=== PATIENT | female | born 1935 | race Caucasian/White ===

== ENCOUNTER → 2017-12-14 12:03 | Outpatient (CLI) | payer MEDICARE, SELFPAY ==
[2017-12-14 13:13] LABS: Prothrombin Time (Protime)PT. 22.7 SECONDS (11.7-14.9)
== END ==
PROVIDERS: Family Provider Internal Medicine; PCP Internal Medicine; Visit Provider Internal Medicine
DX: I48.91 Unspecified atrial fibrillation (principal)
CPT/HCPCS: 85610

== ENCOUNTER → 2018-01-25 12:15 | Outpatient (CLI) | payer MEDICARE, SELFPAY ==
[2018-01-25 12:26] LABS: Prothrombin Time (Protime)PT. 22.8 SECONDS (11.7-14.9)
== END ==
PROVIDERS: Family Provider Internal Medicine; PCP Internal Medicine; Referring Provider Internal Medicine; Visit Provider Internal Medicine
DX: I48.91 Unspecified atrial fibrillation (principal)
CPT/HCPCS: 85610

== ENCOUNTER → 2018-04-22 12:56 | Outpatient (CLI) | payer MEDICARE, SELFPAY ==
[2018-04-22 13:14] LABS: International Normalized Ratio 2.1; Prothrombin Time (Protime)PT. 23.7 SECONDS (11.7-14.9)
== END ==
PROVIDERS: Family Provider Internal Medicine; PCP Internal Medicine; Referring Provider Internal Medicine; Visit Provider Internal Medicine
DX: I48.91 Unspecified atrial fibrillation (principal)
CPT/HCPCS: 85610

== ENCOUNTER → 2018-05-13 11:42 | Outpatient (CLI) | payer MEDICARE, SELFPAY ==
[2013-09-27 15:52] VITALS: BMI 34.9
[2018-05-13 12:03] LABS: International Normalized Ratio 1.9; Prothrombin Time (Protime)PT. 21.7 SECONDS (11.7-14.9)
== END ==
PROVIDERS: Family Provider Internal Medicine; PCP Internal Medicine; Referring Provider Internal Medicine; Visit Provider Internal Medicine
DX: I48.91 Unspecified atrial fibrillation (principal)
CPT/HCPCS: 85610

== ENCOUNTER → 2018-06-02 11:56 | Outpatient (CLI) | payer MEDICARE, SELFPAY ==
[2013-09-27 15:52] VITALS: BMI 34.9
[2018-06-02 12:22] LABS: International Normalized Ratio 1.7; Prothrombin Time (Protime)PT. 19.5 SECONDS (11.7-14.9)
== END ==
PROVIDERS: Family Provider Internal Medicine; PCP Internal Medicine; Referring Provider Internal Medicine; Visit Provider Internal Medicine
DX: I48.91 Unspecified atrial fibrillation (principal)
CPT/HCPCS: 85610

== ENCOUNTER → 2018-06-16 12:08 | Outpatient (CLI) | payer MEDICARE, SELFPAY ==
[2018-06-16 12:28] LABS: International Normalized Ratio 1.8; Prothrombin Time (Protime)PT. 20.9 SECONDS (11.7-14.9)
== END ==
PROVIDERS: Family Provider Internal Medicine; PCP Internal Medicine; Referring Provider Internal Medicine; Visit Provider Internal Medicine
DX: I48.91 Unspecified atrial fibrillation (principal)
CPT/HCPCS: 85610

== ENCOUNTER → 2018-07-28 | Outpatient (CLI) | payer MEDICARE, SELFPAY ==
[2013-09-27 15:52] VITALS: BMI 34.9
[2018-07-28 10:46] LABS: International Normalized Ratio 1.9; Prothrombin Time (Protime)PT. 21.4 SECONDS (11.7-14.9)
== END | disposition home or self-care (01) ==
PROVIDERS: Family Provider Internal Medicine; PCP Internal Medicine; Referring Provider Internal Medicine; Visit Provider Internal Medicine
DX: I48.91 Unspecified atrial fibrillation (principal)
CPT/HCPCS: 85610

== ENCOUNTER → 2018-10-07 | Outpatient (CLI) | payer MEDICARE, SELFPAY ==
[2013-09-27 15:52] VITALS: BMI 34.9
[2018-10-07 10:47] LABS: International Normalized Ratio 2.9; Prothrombin Time (Protime)PT. 30.6 SECONDS (11.7-14.9)
== END | disposition home or self-care (01) ==
LOC: LABSPEC 10:24
PROVIDERS: Family Provider Internal Medicine; PCP Internal Medicine; Referring Provider Internal Medicine; Visit Provider Internal Medicine
DX: I48.2 Chronic atrial fibrillation (principal)
CPT/HCPCS: 85610

== ENCOUNTER → 2018-12-20 | Outpatient (CLI) | payer MEDICARE, SELFPAY ==
[2013-09-27 15:52] VITALS: BMI 34.9
[2018-12-20 12:35] LABS: International Normalized Ratio 3.2; Prothrombin Time (Protime)PT. 33.3 SECONDS (11.7-14.9)
== END | disposition home or self-care (01) ==
LOC: LAB 12:14
PROVIDERS: Family Provider Internal Medicine; PCP Internal Medicine; Referring Provider Internal Medicine; Visit Provider Internal Medicine
DX: I48.2 Chronic atrial fibrillation (principal)
CPT/HCPCS: 85610

== ENCOUNTER 2025-03-08 12:31 | Inpatient (IN) | payer MEDICARE, SELFPAY ==
[2025-03-08] VITALS (26 sets, daily range): BP systolic 105–131; BP diastolic 46–82; PULSE 79–90; RESP 15–32; TEMP 36.6–37.2; O2SAT 84–100; BMI 29.8; BMI 29.0
--- NOTE | 2025-03-08 12:43 | EKG12_ITS ---
Test Reason : SOB Blood Pressure : */* mmHG Vent. Rate : 81 BPM Atrial Rate : 81 BPM P-R Int : 126 ms QRS Dur : 132 ms QT Int : 436 ms P-R-T Axes : * 256 84 degrees QTcB Int : 506 ms AV dual-paced rhythm Abnormal ECG Confirmed by KIN GUERRERO, RAJESH ([id number]), editor newspaper KIANNA RENTERIA ([id number]) on 03/12/2025 6:27:12 AM Referred By: SAMINA/BRENDA Confirmed By: RAJESH SANDERSON MD
[2025-03-08 13:09] LABS: Hematocrit 31.3 % (37-47); Hemoglobin 10.1 g/dL (12.0-15.0); Immature Granulocytes Count 0.180 X10^3/uL (0.0-0.0); Mean Corp Hgb Conc 32.3 g/dL (32-36); Mean Corpuscular Volume 105.4 fL (81-99); Mean Platelet Vol. 11.8 fl (6.2-12.0); NRBC Flagged by Analyzer 0 % (0-5); POSITIVE MORPHOLOGY YES; Platelet Count 164 K/mm3 (150-450); RBC Distribution Width CV 20.2 % (11.6-14.6); RBC Distribution Width SD 77.2 fl (35.1-43.9); Red Blood Count 2.97 M/mm3 (4.2-5.4); White Blood Count 15.0 K/mm3 (4.4-11.0)
--- NOTE | 2025-03-08 13:30 | RAD_ITS ---
PROCEDURE: CHEST 1 VIEW (PORTABLE) 03/08/2025 REASON FOR EXAM: COUGH TECHNIQUE: Frontal view of the chest. COMPARISON: None FINDINGS: Hardware: Biventricular pacemaker is in place. Heart: The heart is enlarged status post median sternotomy Lungs: Central congestion. Trace pleural fluid. Bones: Degenerative changes are identified within the thoracic spine. RAD/Chest 1 View (Portable) IMPRESSION: Cardiac enlargement. Central congestion. Reading Location: [id number]
[2025-03-08 13:36] LABS: Differential Indicated SCAN CRITERIA MET
[2025-03-08 13:37] LABS: Anisocytosis 2+; Differential Comment SCANNED; Macrocytosis 1+; Polychromasia RARE
[2025-03-08 13:47] LABS: Prothrombin Time (Protime)PT. 21.6 SECONDS (11.7-14.9)
[2025-03-08 13:48] LABS: Partial Thromboplast Time 32.2 Seconds (24.1-36.2)
[2025-03-08 14:11] LABS: Anion Gap 12 (5-15); BUN 12 mg/dL (4-19); BUN/Creat Ratio 16.6 RATIO (10-20); Calcium,Total 9.5 mg/dL (7.6-11.0); Carbon Dioxide 28.9 mmol/L (21.0-32.0); Chloride 101 mmol/L (98-108); Estimated Creatinine Clearance 50.32 ml/min (50-250); Glucose 114 mg/dL (70-99); Potassium 3.7 mmol/L (3.3-5.1); Troponin T High Sensitivity 10 ng/L (<=14)
[2025-03-08 14:28] LABS: AST(SGOT) 20 U/L (<=31); Alanine Aminotransfer ALT/SGPT 14 U/L (<=34); Albumin, Serum 4.4 g/dL (3.4-4.8); Alkaline Phosphatase 75 U/L (35-104); Anion Gap 14 (5-15); BUN 12 mg/dL (4-19); BUN/Creat Ratio 16.6 RATIO (10-20); Calcium,Total 9.4 mg/dL (7.6-11.0); Carbon Dioxide 27.4 mmol/L (21.0-32.0); Chloride 101 mmol/L (98-108); Estimated Creatinine Clearance 50.32 ml/min (50-250); Globulin 3.0 g/dL (2.2-4.2); Glucose 114 mg/dL (70-99); Potassium 3.7 mmol/L (3.3-5.1); Pro- Brain NATRIURETIC PEPTIDE 443 pg/mL (<=1800)
[2025-03-08 14:53] LABS: Mucous, Urine 0 SEEN /hpf (<or=2+); Red Blood Cells-Urine 0 SEEN /hpf (0-5); Squamous Epithelial Cells - UA 0 SEEN /hpf (5-10)
[2025-03-08 15:00] LABS: Color, Urine Yellow (Yellow); Glucose, Dipstick Normal (Normal); Ketone-Dipstick Negative (Negative); Leukocyte Esterase-Dipstick 25 /ul (Negative); Nitrite-Dipstick Negative (Negative); Occult Blood-Urine Negative /ul (Negative); Protein-Dipstick 30 mg/dl (Negative); Specific Gravity, Urine 1.010 (1.002-1.030); Urine Bilirubin Dipstick Negative (Negative)
[2025-03-08 15:23] LABS: Troponin T High Sens 2 HR 29 ng/L (<=14)
--- NOTE | 2025-03-08 15:25 | EX.ED.DYSGE1 ---
HPI History of Present Illness Chief Complaint: Shortness of Breath Informant: patient and family Narrative Narrative: 89-year-old female presenting to the emergency room with hypoxia and fever. Patient states for the past week week and a half she has had a cold. She notes a cough some nasal congestion. Beginning on Wednesday she has had a more difficult time with her breathing noting sputum production. She went to see hematology today due to anemia was noted to be febrile at 1-1.7 as well as hypoxic. Patient has not had any Tylenol or antipyretics yet today. She denies diarrhea or vomiting. She notes some generalized fatigue. She does not wear oxygen at home. She is on the Coumadin for prior valvular replacement and A-fib. Patient notes some mild swelling of her lower extremities but states it is not significantly different than normal but she did notice it this morning. [facility] Medical History Pacemaker Breast cancer Anemia HTN (hypertension) Afib Home Medications ?Medication ?Instructions ?Recorded ?Last Taken ?Type calcium 600 mg (as 1 tab PO BID 09/27/13 09/27/13 08:00 History carbonate)-vitamin D3 10 mcg (400 unit) tablet (Calcium 600 + D(3)) nitroglycerin 0.4 mg sublingual 0.4 mg sublingual Q5M PRN Chest 09/27/13 Unknown History tablet Pain potassium chloride 20 mEq 20 meq PO BID 09/27/13 09/27/13 08:00 History tablet,extended release warfarin 5 mg tablet (Jantoven) 8 mg PO SUMOWEFRSA 09/27/13 09/26/13 19:00 History warfarin 7.5 mg tablet (Jantoven) 10 mg PO TUTH 09/27/13 09/23/13 20:00 History atorvastatin 20 mg tablet 20 mg PO QHS cholesterol 03/08/25 Unknown History bumetanide 1 mg tablet 1 - 2 mg PO DAILY edema 03/08/25 Unknown History metoprolol succinate 50 mg 50 mg PO DAILY 03/08/25 Unknown History tablet,extended release 24 hr sacubitril 24 mg-valsartan 26 mg 0.5 tab PO BID 03/08/25 Unknown History tablet sertraline 50 mg tablet 50 mg PO DAILY 03/08/25 Unknown History Allergy/AdvReac Type Severity Reaction Status Date / Time Quinolones Allergy Unknown Verified 03/08/25 12:34 Surgical History H/O aortic valve replacement H/O mitral valve replacement Social History (Updated 03/08/25 @ 16:[address] Blanche Fallon DO) Smoking Status: Never smoker alcohol intake: never substance use type: does not use ROS ROS ED ROS Narrative Generalized weakness Constitutional Constitutional ED: Reports chills and fever(s); Denies weight loss Eyes Eyes: Denies change in vision or diplopia ENT ENT ED: Denies ear pain, rhinorrhea or sore throat Cardiovascular Cardiovascular: Denies chest pain, orthopnea, palpitations or racing heartbeat Respiratory/Chest Respiratory/Chest: Reports cough and sputum; Denies dyspnea or orthopnea Gastrointestinal Gastrointestinal: Denies abdominal pain, diarrhea, nausea or vomiting Genitourinary Genitourinary ED: Denies dysuria, hematuria or urinary frequency Musculoskeletal Musculoskeletal: Denies arthralgias or myalgias Integumentary Denies abscess or rash Neurologic Neurologic: Denies headache(s) or weakness Psychiatric Psychiatric: Denies anxiety, depression, suicidal ideation or suicidal thoughts Endocrine Endocrinology: Denies polydipsia, polyphagia or polyuria Allergic/Immunologic Allergic/Immunologic ED: Denies mouth swelling, tongue swelling or urticaria EXAM Physical Exam Const Vital Signs: 03/08/25 12:34 03/08/25 12:36 03/08/25 13:03 Temperature 98.6 F Temperature Source Oral Pulse Rate 79 81 Respiratory Rate 20 H 18 Respiratory Effort Respiratory Depth Respiratory Pattern Blood Pressure 127/60 H Blood Pressure Mean 82 Pulse Ox 84 100 Oxygen Delivery Method Room Air Nasal Cannula Nasal Cannula Oxygen Flow Rate (L/min) 2 2 03/08/25 13:03 03/08/25 13:04 03/08/25 13:06 Temperature Temperature Source Pulse Rate 87 Respiratory Rate 25 H 22 H Respiratory Effort Normal Non-Labored Respiratory Depth Normal Respiratory Pattern Normal Blood Pressure Blood Pressure Mean Pulse Ox 95 87 Oxygen Delivery Method Nasal Cannula Nasal Cannula Oxygen Flow Rate (L/min) 2 2 03/08/25 13:14 03/08/25 13:15 03/08/25 13:21 Temperature 99 F Temperature Source Oral Pulse Rate 81 81 Respiratory Rate 20 H 27 H Respiratory Effort Respiratory Depth Respiratory Pattern Blood Pressure 131/82 H 126/62 H Blood Pressure Mean 98 81 Pulse Ox 93 93 Oxygen Delivery Method Nasal Cannula Nasal Cannula Oxygen Flow Rate (L/min) 2 2 03/08/25 13:30 03/08/25 13:45 03/08/25 14:00 Temperature 99 F Temperature Source Oral Pulse Rate 80 Respiratory Rate 15 Respiratory Effort Respiratory Depth Respiratory Pattern Blood Pressure 105/55 L 120/61 119/63 Blood Pressure Mean 68 80 81 Pulse Ox 93 96 Oxygen Delivery Method Nasal Cannula Oxygen Flow Rate (L/min) 2 03/08/25 14:00 03/08/25 14:01 03/08/25 14:15 Temperature Temperature Source Pulse Rate 80 80 Respiratory Rate 26 H 25 H Respiratory Effort Respiratory Depth Respiratory Pattern Blood Pressure 119/63 119/60 Blood Pressure Mean 81 79 Pulse Ox 99 94 Oxygen Delivery Method Oxygen Flow Rate (L/min) 03/08/25 14:30 03/08/25 14:45 03/08/25 14:55 Temperature Temperature Source Pulse Rate 81 82 81 Respiratory Rate 24 H 15 30 H Respiratory Effort Respiratory Depth Respiratory Pattern Blood Pressure 126/59 H 126/56 H 112/59 L Blood Pressure Mean 79 77 76 Pulse Ox 95 94 92 Oxygen Delivery Method Oxygen Flow Rate (L/min) 03/08/25 15:00 03/08/25 15:00 03/08/25 15:00 Temperature 98.2 F Temperature Source Oral Pulse Rate 81 80 90 Respiratory Rate 26 H 20 H 23 H Respiratory Effort Respiratory Depth Respiratory Pattern Blood Pressure 109/54 L 109/54 L 109/54 L Blood Pressure Mean 72 72 72 Pulse Ox 94 94 94 Oxygen Delivery Method Nasal Cannula Nasal Cannula Oxygen Flow Rate (L/min) 2 2 03/08/25 15:15 03/08/25 15:28 03/08/25 15:30 Temperature 98.2 F Temperature Source Pulse Rate 80 80 80 Respiratory Rate 32 H 26 H 29 H Respiratory Effort Respiratory Depth Respiratory Pattern Blood Pressure 112/55 L 112/55 L 119/59 L Blood Pressure Mean 73 74 72 Pulse Ox 100 96 96 Oxygen Delivery Method Oxygen Flow Rate (L/min) 03/08/25 15:45 03/08/25 16:00 Temperature Temperature Source Pulse Rate 81 80 Respiratory Rate 32 H 31 H Respiratory Effort Respiratory Depth Respiratory Pattern Blood Pressure 114/57 L 106/53 L Blood Pressure Mean 74 69 Pulse Ox 93 94 Oxygen Delivery Method Oxygen Flow Rate (L/min) Positive well nourished and well developed General Appearance ED: well developed and NAD HEENT Reports normocephalic, head/scalp atraumatic and moist mucous membranes Eyes PERRL and EOMs intact bilaterally Neck no lymphadenopathy, supple and no JVD Resp normal respiratory effort Resp Narrative: Patient has a moist cough with thick sputum production Auscultation: rhonchi throughout Cardio regular rate, regular rhythm and no murmurs GI normal to inspection, nondistended, normoactive bowel sounds and non-tender Palpation: soft Back/Spine no CVA tenderness and normal ROM Extremity General Extremety ED: Yes edema; Negative for tenderness General Extremity: edema bilateral lower extremity Details: mild Neuro oriented x3, CN's II-XII intact bilaterally and no sensory deficits noted Sensorium / Orientation: alert Motor Exam: strength 5/5 throughout Psych mental status grossly normal Mood & Affect: Negative for depressed or tearful Skin no rashes or lesions noted and no wounds MDM MDM MDM Narrative Medical decision making narrative: Differential diagnosis includes but not limited to acute coronary syndrome pneumonia bronchitis bronchospasm pleural effusion congestive heart failure sepsis Patient's white count is elevated at 15 hemoglobin 10.1 platelet count of 164. INR is 1.8. Glucose is 114 troponin 29 urinalysis no overt infection COVID influenza RSV swabs negative. BNP is 445. May depend interpretation of the chest x-ray is right middle lobe and left lower lobe infiltrates. EKG is a paced rhythm. Patient received a breathing treatment as well as Rocephin and azithromycin. She is requiring 2 L nasal cannula and is about 91%. Plan of care is admission History & Record Review Discussion w/independent historian: Patient and Family Lab Data Attestation: I reviewed the patient's lab results. Labs: Laboratory Results - last 24 hr 03/08/25 03/08/25 03/08/25 13:04 13:04 13:04 WBC 15.0 H RBC 2.97 L Hgb 10.1 L Hct 31.3 L MCV 105.4 H MCH 34.0 H MCHC 32.3 RDW Std Deviation 77.2 H RDW Coeff of Trino 20.2 H Plt Count 164 MPV 11.8 Immature Gran % (Auto) 1.200 H Neut % (Auto) 83.4 H Lymph % (Auto) 6.8 L [place] % (Auto) 8.1 Eos % (Auto) 0.2 Baso % (Auto) 0.3 Absolute Neuts (auto) 12.5 H Absolute Lymphs (auto) 1.02 Nucleated RBC % 0 Differential Comment SCANNED Polychromasia RARE Anisocytosis 2+ Macrocytosis 1+ Ovalocytes RARE Stomatocytes RARE PT INR APTT Sodium 141 142 Potassium 3.7 3.7 Chloride 101 Carbon Dioxide Anion Gap BUN Creatinine Estim Creat Clear Calc Est GFR (MDRD) Non-Af BUN/Creatinine Ratio Glucose Lactic Acid Calcium Total Bilirubin AST ALT Alkaline Phosphatase Troponin T High Sens Troponin T Hi Sens 2 Hr NT pro BNP II Total Protein Albumin Globulin Albumin/Globulin Ratio Urine Color Urine Clarity Urine pH Ur Specific [place] Urine Protein Urine Glucose (UA) Urine Ketones Urine Occult Blood Urine Nitrite Urine Bilirubin Urine Urobilinogen Ur Leukocyte Esterase Urine RBC Urine WBC Ur Squamous Epith Cells Urine Bacteria Urine Mucus 03/08/25 03/08/25 03/08/25 13:04 13:04 13:04 WBC RBC Hgb Hct MCV MCH MCHC RDW Std Deviation RDW Coeff of Trino Plt Count MPV Immature Gran % (Auto) Neut % (Auto) Lymph % (Auto) [place] % (Auto) Eos % (Auto) Baso % (Auto) Absolute Neuts (auto) Absolute Lymphs (auto) Nucleated RBC % Differential Comment Polychromasia Anisocytosis Macrocytosis Ovalocytes Stomatocytes PT INR APTT Sodium Potassium Chloride 101 Carbon Dioxide 28.9 27.4 Anion Gap 12 14 BUN 12 Creatinine Estim Creat Clear Calc Est GFR (MDRD) Non-Af BUN/Creatinine Ratio Glucose Lactic Acid Calcium Total Bilirubin AST ALT Alkaline Phosphatase Troponin T High Sens Troponin T Hi Sens 2 Hr NT pro BNP II Total Protein Albumin Globulin Albumin/Globulin Ratio Urine Color Urine Clarity Urine pH Ur Specific [place] Urine Protein Urine Glucose (UA) Urine Ketones Urine Occult Blood Urine Nitrite Urine Bilirubin Urine Urobilinogen Ur Leukocyte Esterase Urine RBC Urine WBC Ur Squamous Epith Cells Urine Bacteria Urine Mucus 03/08/25 03/08/25 03/08/25 13:04 13:04 13:04 WBC RBC Hgb Hct MCV MCH MCHC RDW Std Deviation RDW Coeff of Trino Plt Count MPV Immature Gran % (Auto) Neut % (Auto) Lymph % (Auto) [place] % (Auto) Eos % (Auto) Baso % (Auto) Absolute Neuts (auto) Absolute Lymphs (auto) Nucleated RBC % Differential Comment Polychromasia Anisocytosis Macrocytosis Ovalocytes Stomatocytes PT INR APTT Sodium Potassium Chloride Carbon Dioxide Anion Gap BUN 12 Creatinine 0.73 0.72 Estim Creat Clear Calc 50.32 50.32 Est GFR (MDRD) Non-Af 79 BUN/Creatinine Ratio Glucose Lactic Acid Calcium Total Bilirubin AST ALT Alkaline Phosphatase Troponin T High Sens Troponin T Hi Sens 2 Hr NT pro BNP II Total Protein Albumin Globulin Albumin/Globulin Ratio Urine Color Urine Clarity Urine pH Ur Specific [place] Urine Protein Urine Glucose (UA) Urine Ketones Urine Occult Blood Urine Nitrite Urine Bilirubin Urine Urobilinogen Ur Leukocyte Esterase Urine RBC Urine WBC Ur Squamous Epith Cells Urine Bacteria Urine Mucus 03/08/25 03/08/25 03/08/25 13:04 13:04 13:04 WBC RBC Hgb Hct MCV MCH MCHC RDW Std Deviation RDW Coeff of Trino Plt Count MPV Immature Gran % (Auto) Neut % (Auto) Lymph % (Auto) [place] % (Auto) Eos % (Auto) Baso % (Auto) Absolute Neuts (auto) Absolute Lymphs (auto) Nucleated RBC % Differential Comment Polychromasia Anisocytosis Macrocytosis Ovalocytes Stomatocytes PT INR APTT Sodium Potassium Chloride Carbon Dioxide Anion Gap BUN Creatinine Estim Creat Clear Calc Est GFR (MDRD) Non-Af 81 BUN/Creatinine Ratio 16.6 16.6 Glucose 114 H 114 H Lactic Acid Calcium 9.5 Total Bilirubin AST ALT Alkaline Phosphatase Troponin T High Sens Troponin T Hi Sens 2 Hr NT pro BNP II Total Protein Albumin Globulin Albumin/Globulin Ratio Urine Color Urine Clarity Urine pH Ur Specific [place] Urine Protein Urine Glucose (UA) Urine Ketones Urine Occult Blood Urine Nitrite Urine Bilirubin Urine Urobilinogen Ur Leukocyte Esterase Urine RBC Urine WBC Ur Squamous Epith Cells Urine Bacteria Urine Mucus 03/08/25 03/08/25 03/08/25 13:04 13:14 13:30 WBC RBC Hgb Hct MCV MCH MCHC RDW Std Deviation RDW Coeff of Trino Plt Count MPV Immature Gran % (Auto) Neut % (Auto) Lymph % (Auto) [place] % (Auto) Eos % (Auto) Baso % (Auto) Absolute Neuts (auto) Absolute Lymphs (auto) Nucleated RBC % Differential Comment Polychromasia Anisocytosis Macrocytosis Ovalocytes Stomatocytes PT 21.6 H INR 1.8 APTT 32.2 Sodium Potassium Chloride Carbon Dioxide Anion Gap BUN Creatinine Estim Creat Clear Calc Est GFR (MDRD) Non-Af BUN/Creatinine Ratio Glucose Lactic Acid 1.3 Calcium 9.4 Total Bilirubin 1.15 AST 20 ALT 14 Alkaline Phosphatase 75 Troponin T High Sens 10 Troponin T Hi Sens 2 Hr NT pro BNP II 443 Total Protein 7.4 Albumin 4.4 Globulin 3.0 Albumin/Globulin Ratio 1.5 Urine Color Urine Clarity Urine pH Ur Specific [place] Urine Protein Urine Glucose (UA) Urine Ketones Urine Occult Blood Urine Nitrite Urine Bilirubin Urine Urobilinogen Ur Leukocyte Esterase Urine RBC Urine WBC Ur Squamous Epith Cells Urine Bacteria Urine Mucus 03/08/25 03/08/25 03/08/25 14:45 14:50 15:35 WBC RBC Hgb Hct MCV MCH MCHC RDW Std Deviation RDW Coeff of Trino Plt Count MPV Immature Gran % (Auto) Neut % (Auto) Lymph % (Auto) [place] % (Auto) Eos % (Auto) Baso % (Auto) Absolute Neuts (auto) Absolute Lymphs (auto) Nucleated RBC % Differential Comment Polychromasia Anisocytosis Macrocytosis Ovalocytes Stomatocytes PT INR APTT Sodium Potassium Chloride Carbon Dioxide Anion Gap BUN Creatinine Estim Creat Clear Calc Est GFR (MDRD) Non-Af BUN/Creatinine Ratio Glucose Lactic Acid Calcium Total Bilirubin AST ALT Alkaline Phosphatase Troponin T High Sens Troponin T Hi Sens 2 Hr 29 H NT pro BNP II 445 Total Protein Albumin Globulin Albumin/Globulin Ratio Urine Color Yellow Urine Clarity Clear Urine pH 6.0 Ur Specific [place] 1.010 Urine Protein 30 H Urine Glucose (UA) Normal Urine Ketones Negative Urine Occult Blood Negative Urine Nitrite Negative Urine Bilirubin Negative Urine Urobilinogen 1 H Ur Leukocyte Esterase 25 H Urine RBC 0 SEEN Urine WBC 0-5 SEEN Ur Squamous Epith Cells 0 SEEN Urine Bacteria 0 SEEN Urine Mucus 0 SEEN Radiography Diagnostic Testing: Clinical Impression(s) from Imaging Studies Chest X-Ray 03/08/25 13:30 IMPRESSION: Cardiac enlargement. Central congestion. Reading Location: [facility] EKG Initial EKG: Attestation: I personally reviewed and interpreted this EKG as follows: Comments: AV dual paced rhythm Management Discussion w/another healthcare provider: Hospitalist Discharge Plan Dx/Rx/DC Orders Clinical Impression: Pneumonia, Acute hypoxemic respiratory failure, Anticoagulated on Coumadin Disposition Disposition: Acute Care Hospital [facility]
--- NOTE | 2025-03-08 15:32 | HP.PCM.HOS_ITS ---
HPI - General General Date of Admission: 03/08/25 Date of Service: 03/08/25 Chief Complaint: Cough/fever/shortness of breath HPI Narrative TERRI OLIVER, is a 89 F who presented to the emergency department at [facility] on 03/08/2025 with chief complaint of cough/fever/shortness of breath. Patient states she started with URI symptoms last weekend. She states that typically she gets respiratory illnesses in the late winter so she thought this was probably allergies however her symptoms slowly progressed. She now has a rhonchorous cough and has developed a fever, chills and decreased appetite. She states she is mildly shortness of breath and denies any chest pain. She has had no nausea or vomiting. No diarrhea. No abdominal pain. She sees Dr. Corley for anemia and she was noted to have a fever in his office as they sent her to be evaluated. She initially went to urgent care and then was subsequently sent to the emergency department as she was hypoxic. Upon arrival here she was found to have an SpO2 of 84% and was placed on supplemental oxygen at 2 L with improvement to her oxygen saturation to 91% immediately. Fever at outside facility was greater than 101. Vital signs on presentation showed a temperature of 98.6, heart rate was 79, respiratory was 20, blood pressure is 127/60 and pulse ox was 84% on room air. Tmax in the emergency department was 99 degrees. CBC showed a leukocytosis with a white count of 15.0 and a left shift with a 83.4% neutrophilia. She is a chronic stable anemia with a hemoglobin of 10.1 is macrocytic in nature. INR was mildly subtherapeutic at 1.8. Chemistry panel was overall unremarkable. Lactic acid was normal at 1.3. Liver functions were normal. Initial troponin was 29. BNP is normal at 443. Chest x-ray shows cardiomegaly with BiV pacer in place and trace bilateral pleural effusions. On clinical exam she sounds very coarse with scattered wheezing. COVID/flu/RSV was unremarkable. Blood and urine cultures were obtained in the emergency department. Sputum culture was ordered but not yet obtained and she was started antibiotics to cover commune acquired pneumonia with ceftriaxone 2 g and azithromycin 500 mg. [facility] Medical History Pacemaker Breast cancer Anemia HTN (hypertension) Afib Home Medications ?Medication ?Instructions ?Recorded ?Last Taken ?Type calcium 600 mg (as 1 tab PO BID 09/27/13 08:00 History carbonate)-vitamin D3 10 mcg (400 unit) tablet (Calcium 600 + D(3)) nitroglycerin 0.4 mg sublingual 0.4 mg sublingual Q5M PRN Chest 09/27/13 Unknown History tablet Pain potassium chloride 20 mEq 20 meq PO BID 09/27/1309/27 08:00 History tablet,extended release warfarin 5 mg tablet (Jantoven) 8 mg PO SUMOWEFRSA 05/1209/26/13 19:00 History warfarin 7.5 mg tablet (Jantoven) 10 mg PO TUTH 09/23/13 20:00 History atorvastatin 20 mg tablet 20 mg PO QHS cholesterol 02/20 Unknown History bumetanide 1 mg tablet 1 - 2 mg PO DAILY edema 02/26 04/22 Unknown History metoprolol succinate 50 mg 50 mg PO DAILY 03/08/25 Unk nown History tablet,extended release 24 hr sacubitril 24 mg-valsartan 26 mg 0.5 tab PO BID Unknown History tablet sertraline 50 mg tablet 50 mg PO DAILY 03/08/25 Unkn own History Allergy/AdvReac Type Severity Reaction Status Date / Time Quinolones Allergy Unknown Verified 03/08/25 12:34 no significant family history Surgical History H/O aortic valve replacement H/O mitral valve replacement Social History (Updated 03/08/25 @ 16:[address] Blanche Fallon DO) Smoking Status: Never smoker alcohol intake: never substance use type: does not use ROS Constitutional Constitutional: Reports anorexia, chills, fatigue, fever(s), malaise and weakness; Denies change in weight, night sweats or other Eyes Eyes: Denies blurry vision, change in eye color, change in vision, discharge from eye(s), double vision, erythema, eye pain, loss of vision or other ENT HEENT: Reports nasal congestion, nasal discharge and post nasal drip; Denies abnormal hearing, dysphagia, ear pain, epistaxis, headache(s), hearing loss, sinus pressure, sore throat or other Cardiovascular Cardiovascular: Reports dyspnea on exertion; Denies chest pain, claudication, edema, lightheadedness, orthopnea, palpitations, paroxysmal nocturnal dyspnea, rapid heart rate, syncope or other Respiratory/Chest Respiratory/Chest: Reports cough, dyspnea, excessive phlegm production, productive cough and shortness of breath with exertion; Denies hemoptysis, shortness of breath at rest, wheezing or other Gastrointestinal Gastrointestinal: Denies abdominal pain, coffee ground emesis, constipation, diarrhea, dyspepsia, hematemesis, hematochezia, loose stools, melena, nausea, vomiting or other Genitourinary Genitourinary: Denies burning urination, difficulty urinating, dysuria, hematuria, nocturia, urinary frequency, urinary hesitancy, urinary incontinence, urinary urgency or other Musculoskeletal Musculoskeletal: Reports myalgias; Denies arthralgias, back pain, joint pain, joint stiffness, joint swelling, neck pain or other Neurologic Neurologic: Denies abnormal gait, abnormal speech, confusion, disequilibrium, dizziness, focal weakness, headache(s), numbness, paresthesias, seizure-like activity, seizures, syncope, tingling, tremor(s) or other Psychiatric Psychiatric: Denies anxiety, depression, homicidal ideation, suicidal ideation or other Endocrine Endocrinology: Denies change in body appearance, cold intolerance, excessive sweating, heat intolerance, polydipsia, polyuria or other Hematologic/Lymphatic Hematologic/Lymphatic: Denies anemia, easy bleeding, easy bruising, lymphadenopathy or other Allergic/Immunologic Allergic/Immunologic: Denies rhinitis, hives, eczemia, asthma or other Vital Signs Vital Signs Vital Signs: 03/08/25 12:34 03/08/25 12:36 03/08/25 13:03 Temperature 98.6 F Temperature Source Oral Pulse Rate 79 81 Respiratory Rate 20 H 18 Respiratory Effort Respiratory Depth Respiratory Pattern Blood Pressure 127/60 H Blood Pressure Mean 82 Pulse Ox 84 100 Oxygen Delivery Method Room Air Nasal Cannula Nasal Cannula Oxygen Flow Rate (L/min) 2 2 03/08/25 13:03 03/08/25 13:04 03/08/25 13:14 Temperature 99 F Temperature Source Oral Pulse Rate 81 Respiratory Rate 25 H 20 H Respiratory Effort Normal Non-Labored Respiratory Depth Normal Respiratory Pattern Normal Blood Pressure 131/82 H Blood Pressure Mean 98 Pulse Ox 95 93 Oxygen Delivery Method Nasal Cannula Nasal Cannula Nasal Cannula Oxygen Flow Rate (L/min) 2 2 2 03/08/25 13:21 03/08/25 14:00 03/08/25 14:01 Temperature 99 F Temperature Source Oral Pulse Rate 80 80 Respiratory Rate 15 26 H Respiratory Effort Respiratory Depth Respiratory Pattern Blood Pressure 119/63 Blood Pressure Mean 81 Pulse Ox 96 Oxygen Delivery Method Nasal Cannula Nasal Cannula Oxygen Flow Rate (L/min) 2 2 03/08/25 15:00 03/08/25 15:00 03/08/25 15:28 Temperature 98.2 F 98.2 F Temperature Source Oral Pulse Rate 81 80 80 Respiratory Rate 26 H 20 H 26 H Respiratory Effort Respiratory Depth Respiratory Pattern Blood Pressure 109/54 L 109/54 L 112/55 L Blood Pressure Mean 72 72 74 Pulse Ox 94 94 96 Oxygen Delivery Method Nasal Cannula Nasal Cannula Oxygen Flow Rate (L/min) 2 2 Weight Weight: 78.8 kg Body Mass Index (BMI) 29.8 Physical Exam Const alert, oriented x3, no apparent distress and well nourished Constitutional Narrative: Elderly, overweight, white female, sitting up in bed, appears ill but not acutely toxic, no distress at this time General Appearance: cooperative HEENT normocephalic and head/scalp atraumatic HEENT Narrative: mucous membranes are slightly dry, mild hearing loss, Mallampati 2, no thrush Eyes EOMs intact bilaterally and conjunctivae normal Eyes Narrative: No scleral icterus Neck supple Neck Narrative: Trachea midline, no thyroid enlargement Resp no retractions, no use of accessory muscles and No clear to auscultation bilaterally Resp Narrative: Mild tachypnea, coarse breath sounds bilaterally with few scattered end expiratory and inspiratory wheezes Auscultation: wheezes; Negative for crackles or rhonchi Cardio regular rate, S1 normal heart sound, S2 normal heart sound, no murmurs, no rub and no gallops; Negative for no clicks Cardio Narrative: Paced, click auscultated GI normal to inspection, nondistended, normoactive bowel sounds, soft to palpation and non-tender Extremity no clubbing, cyanosis or edema Extremity Narrative: 2+ pedal and radial pulses Neuro moves all extremities and no focal motor deficits Neuro Narrative: Generalized weakness noted but no focal deficits Speech: speech normal Psych Psych Narrative: Affect is slightly flat and appropriate for the current situation, patient makes good eye contact and interacts appropriately Results Lab / Micro Data 03/08/25 13:04 03/08/25 13:04 Labs: Laboratory Results - last 24 hr 03/08/25 13:04: WBC 15.0 H, RBC 2.97 L, Hgb 10.1 L, Hct 31.3 L, MCV 105.4 H, MCH 34.0 H, MCHC 32.3, RDW Std Deviation 77.2 H, RDW Coeff of Trino 20.2 H, Plt Count 164, MPV 11.8, Immature Gran % (Auto) 1.200 H, Neut % (Auto) 83.4 H, Lymph % (Auto) 6.8 L, [place] % (Auto) 8.1, Eos % (Auto) 0.2, Baso % (Auto) 0.3, Absolute Neuts (auto) 12.5 H, Absolute Lymphs (auto) 1.02, Nucleated RBC % 0, Differential Comment SCANNED, Polychromasia RARE, Anisocytosis 2+, Macrocytosis 1+, Ovalocytes RARE, Stomatocytes RARE, Sodium 141 03/08/25 13:04: Sodium 142, Potassium 3.7 03/08/25 13:04: Potassium 3.7, Chloride 101 03/08/25 13:04: Chloride 101, Carbon Dioxide 28.9 03/08/25 13:04: Carbon Dioxide 27.4, Anion Gap 12 03/08/25 13:04: Anion Gap 14, BUN 12 03/08/25 13:04: BUN 12, Creatinine 0.73 03/08/25 13:04: Creatinine 0.72, Estim Creat Clear Calc 50.32 03/08/25 13:04: Estim Creat Clear Calc 50.32, Est GFR (MDRD) Non-Af 79 03/08/25 13:04: Est GFR (MDRD) Non-Af 81, BUN/Creatinine Ratio 16.6 03/08/25 13:04: BUN/Creatinine Ratio 16.6, Glucose 114 H 03/08/25 13:04: Glucose 114 H, Calcium 9.5 03/08/25 13:04: Calcium 9.4, Total Bilirubin 1.15, AST 20, ALT 14, Alkaline Phosphatase 75, Troponin T High Sens 10, NT pro BNP II 443, Total Protein 7.4, Albumin 4.4, Globulin 3.0, Albumin/Globulin Ratio 1.5 03/08/25 13:14: PT 21.6 H, INR 1.8, APTT 32.2 03/08/25 13:30: Lactic Acid 1.3 03/08/25 14:45: Urine Color Yellow, Urine Clarity Clear, Urine pH 6.0, Ur Specific [place] 1.010, Urine Protein 30 H, Urine Glucose (UA) Normal, Urine Ketones Negative, Urine Occult Blood Negative, Urine Nitrite Negative, Urine Bilirubin Negative, Urine Urobilinogen 1 H, Ur Leukocyte Esterase 25 H, Urine RBC 0 SEEN, Urine WBC 0-5 SEEN, Ur Squamous Epith Cells 0 SEEN, Urine Bacteria 0 SEEN, Urine Mucus 0 SEEN 03/08/25 14:50: Troponin T Hi Sens 2 Hr 29 H Micro: Microbiology 03/08/25 13:30 Mucosa - Nose SARS-CoV-2, Influenza & RSV (PCR) - Final Imaging Radiology Impression Chest X-Ray 03/08/25 13:30 IMPRESSION: Cardiac enlargement. Central congestion. Reading Location: [facility] Assessment & Plan Assessment/Plan (1) Hypoxia: (2) Community acquired pneumonia: (3) Elevated troponin I level: (4) Fever: (5) Shortness of breath: (6) Leukocytosis: PLAN: Plan Acute hypoxia secondary to community-acquired pneumonia -Patient is not oxygen dependent at baseline and currently requiring 2 L supplemental oxygen -Does not have marked hypotension or tachycardia so not hypoxic respiratory failure -Will need ambulatory pulse ox prior to discharge - Check strep pneumo and Legionella antigens - Check respiratory viral panel - COVID/flu/RSV was negative - Blood and urine cultures are pending resolved - Sputum culture ordered and pending collection - Mucinex 1200 p.o. twice daily - Prednisone 40 mg p.o. daily - Azithromycin and ceftriaxone to continue day 1 of 7 Leukocytosis - Secondary to the above - Antibiotics as noted - should trend down Troponin elevation - Will trend - Delta is pending - If delta not markedly elevated likely related to hypoxia - If delta trends up significantly will check echocardiogram and consider further workup for NSTEMI depending on rate of rise - EKG without changes - Patient without significant chest pain Chronic macrocytic anemia - Hemoglobin is stable - Follows with Dr. Corley - Continue ongoing outpatient follow-up Atrial fibrillation/SSS - Continue anticoagulation with current warfarin dose despite being slightly subtherapeutic given antibiotic use - Patient has pacemaker - EKG is stable - Continue home metoprolol CAD/essential HTN/HPL/history of mitral valve replacement - Continue home atorvastatin - Continue home Bumex - Continue home Entresto. - Continue ongoing outpatient follow-up as primary cardiologisto Depression - Continue home sertraline DVT prophylaxis - INR is 1.8 today - Reevaluate INR in a.m. and if still subtherapeutic could consider subcu heparin twice daily CODE STATUS - DNR CCA was verified at the time of admission Charges/Coding Visit Charges Inpatient E&M: 19329 Init Hosp L2
[2025-03-08 16:11] LABS: Pro- Brain NATRIURETIC PEPTIDE 445 pg/mL (<=1800)
--- NOTE | 2025-03-08 16:17 | ED.RN ---
PHARMACY CALLED FOR MALFUNCTIONING ZITHROMAX BAG AND VIAL. RESPONSE WE MILL SEND A NEW ONE
--- NOTE | 2025-03-08 16:23 | ECHOD_ITS ---
Reason For Study Reason For Study: ELEVATED TROPONIN Procedure This was a 2D Doppler, Color Flow transthoracic echocardiogram. Exam performed portable in patient room. Left Ventricle Normal LV size. The estimated ejection fraction is 55 %. Unable to assess diastolic dysfunction. No regional wall motion abnormalities noted. Right Ventricle Normal RV size. ICD or pacer leads identified within the right ventricle. Normal systolic function. Atria The left atrium is severely enlarged. The right atrium is moderately enlarged. ICD or pacer leads identified within the right atrium. No doppler evidence for ASD. Mitral Valve Trivial mitral valve insufficiency. 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 Tricuspid Valve There is no tricuspid stenosis. Moderate (2+) tricuspid valve insufficiency. Pulmonary artery systolic pressure is 60 mmHg. Aortic Valve There is no aortic stenosis. No aortic valve insufficiency. Possibly TAVR valve. Pulmonic Valve There is no pulmonic valvular stenosis. No pulmonic valve insufficiency. Great Vessels Normal sized aortic root. Pericardium/Pleural No pericardial effusion. MMode/2D Measurements & Calculations LVIDd: 5.3 cm IVSd: 1.1 cm LVOT diam: 2.0 cm LVIDs: 3.3 cm LVPWd: 1.3 cm LVOT area: 3.0 cm2 RVDd: 4.4 cm FS: 38.2 % Ao root diam: 3.2 cm LAV(MOD-bp): 147.3 ml LVAd ap4: 25.3 cm2 LAV(MOD-bp) Indexed: 80.9 ml/m2 LVLd ap4: 7.1 cm LAV(MOD-sp2): 141.7 ml EDV(MOD-sp4): 76.5 ml LAV(MOD-sp4): 147.6 ml EDV(sp4-el): 77.1 ml LVAs ap4: 14.9 cm2 LVLs ap4: 6.4 cm ESV(MOD-sp4): 29.1 ml ESV(sp4-el): 29.2 ml EF(MOD-sp4): 62.0 % EF(sp4-el): 62.2 % SV(MOD-sp4): 47.4 ml SV(sp4-el): 47.9 ml LA A4 area: 37.1 cm2 SI(MOD-sp4): 26.0 ml/m2 LA dimension(2D): 4.5 cm RA A4 area: 33.6 cm2 Doppler Measurements & Calculations MV E max jair: 223.0 cm/sec Lat Peak E' Jair: 7.0 cm/sec Med Peak E' Jair: 5.0 cm/sec E/E' lat: 32.0 E/E' med: 44.5 MV V2 max: 296.8 cm/sec MV P1/2t max jair: 279.5 cm/sec Ao V2 max: 199.7 cm/sec MV max P.2 mmHg MV P1/2t: 105.7 msec Ao max P.0 mmHg MV V2 mean: 159.0 cm/sec Ao V2 mean: 136.0 cm/sec MV mean P.3 mmHg MV dec slope: 774.7 cm/sec2 Ao mean P.4 mmHg MV V2 VTI: 63.3 cm MVA(P1/2t): 2.1 cm2 Ao V2 VTI: 40.4 cm AV (velocity ratio): 0.66 MVA(VTI): 1.3 cm2 TABITHA(I,D): 2.0 cm2 TABITHA(V,D): 1.9 cm2 LV V1 max: 126.6 cm/sec SV(LVOT): 80.6 ml PA V2 max: 139.5 cm/sec LV V1 max P.4 mmHg LV V1 mean P.0 mmHg LV V1 mean: 80.5 cm/sec LV V1 VTI: 26.5 cm TR max jair: 365.1 cm/sec TR max P.3 mmHg ECHO/Echo Complete Interpretation Summary The estimated ejection fraction is 55 %. The left atrium is severely enlarged. The right atrium is moderately enlarged. Stable appearing bioprosthetic mitral valve apparatus with severe prosthetic mi tral valve stenosis Trivial mitral valve insufficiency. Ordering Physician: Blanche Fallon Referring Physician: DOROTHEA DUVAL Performed By: Nai Rojas RDCS
[2025-03-08] MEDS: Azithromycin 500 MG in 0.9% Normal Saline (250mL Bag) 250 ML 250 MG IV (16:24)
[2025-03-08] MEDS: Warfarin (PBKC) 5 MG Tablet 10 MG PO (18:24)
[2025-03-08 18:27] LABS: Troponin T High Sens 4 HR 12 ng/L (<=14)
[2025-03-08] MEDS: SACUBITRIL/VALSARTAN 24/26 MG TABLET 0.5 EACH PO (20:55)
[2025-03-08] MEDS: Calcium Carb/Vitamin D 1 TABLET Tablet PO (20:55)
[2025-03-08] MEDS: Potassium Chloride Oral Tablet 20 MEQ PO (20:56)
[2025-03-09] VITALS (12 sets, daily range): BP systolic 88–103; BP diastolic 42–55; PULSE 76–86; RESP 17–20; TEMP 36.6; O2SAT 93–95; BMI 29.0
[2025-03-09 07:29] LABS: Hematocrit 27.1 % (37-47); Hemoglobin 8.7 g/dL (12.0-15.0); Immature Granulocytes Count 0.160 X10^3/uL (0.0-0.0); Mean Corp Hgb Conc 32.1 g/dL (32-36); Mean Corpuscular Volume 105.0 fL (81-99); Mean Platelet Vol. 12.4 fl (6.2-12.0); NRBC Flagged by Analyzer 0 % (0-5); POSITIVE DIFFERENTIAL YES; POSITIVE MORPHOLOGY YES; Platelet Count 148 K/mm3 (150-450); RBC Distribution Width CV 20.4 % (11.6-14.6); RBC Distribution Width SD 78.6 fl (35.1-43.9); Red Blood Count 2.58 M/mm3 (4.2-5.4); White Blood Count 9.8 K/mm3 (4.4-11.0)
--- NOTE | 2025-03-09 07:41 | PN.HOSP_ITS ---
Reason for Visit Chief Complaint: Cough/fever/shortness of breath Subjective Subjective Feeling better. Breathing better Objective Data Objective Data Vital Signs: Vital Signs Temp Pulse Resp BP Pulse Ox O2 Del Method O2 Flow Rate 36.6 C 80 20 H 91/55 L 94 Nasal Cannula 2 03/09/25 02:22 03/09/25 02:22 03/09/25 03:38 03/09/25 02:22 03/09/25 02:22 03/09/25 02:22 03/09/25 02:22 Oxygen Flow Rate (L/min) 2 Oxygen Delivery Method Nasal Cannula Weight: 76.7 kg Body Mass Index (BMI) 29.0 Intake & Output: Intake and Output for Last 24 Hours 03/07/25 03/08/25 03/09/25 23:59 23:59 23:59 Intake Total 300 / 300 Balance 300 / 300 Lab / Micro Data 03/09/25 06:53 03/09/25 06:53 Labs: Laboratory Results - last 24 hr 03/08/25 13:04: WBC 15.0 H, RBC 2.97 L, Hgb 10.1 L, Hct 31.3 L, MCV 105.4 H, MCH 34.0 H, MCHC 32.3, RDW Std Deviation 77.2 H, RDW Coeff of Trino 20.2 H, Plt Count 164, MPV 11.8, Immature Gran % (Auto) 1.200 H, Neut % (Auto) 83.4 H, Lymph % (Auto) 6.8 L, [place] % (Auto) 8.1, Eos % (Auto) 0.2, Baso % (Auto) 0.3, Absolute Neuts (auto) 12.5 H, Absolute Lymphs (auto) 1.02, Nucleated RBC % 0, Differential Comment SCANNED, Polychromasia RARE, Anisocytosis 2+, Macrocytosis 1+, Ovalocytes RARE, Stomatocytes RARE, Sodium 141 03/08/25 13:04: Sodium 142, Potassium 3.7 03/08/25 13:04: Potassium 3.7, Chloride 101 03/08/25 13:04: Chloride 101, Carbon Dioxide 28.9 03/08/25 13:04: Carbon Dioxide 27.4, Anion Gap 12 03/08/25 13:04: Anion Gap 14, BUN 12 03/08/25 13:04: BUN 12, Creatinine 0.73 03/08/25 13:04: Creatinine 0.72, Estim Creat Clear Calc 50.32 03/08/25 13:04: Estim Creat Clear Calc 50.32, Est GFR (MDRD) Non-Af 79 03/08/25 13:04: Est GFR (MDRD) Non-Af 81, BUN/Creatinine Ratio 16.6 03/08/25 13:04: BUN/Creatinine Ratio 16.6, Glucose 114 H 03/08/25 13:04: Glucose 114 H, Calcium 9.5 03/08/25 13:04: Calcium 9.4, Total Bilirubin 1.15, AST 20, ALT 14, Alkaline Phosphatase 75, Troponin T High Sens 10, NT pro BNP II 443, Total Protein 7.4, Albumin 4.4, Globulin 3.0, Albumin/Globulin Ratio 1.5 03/08/25 13:14: PT 21.6 H, INR 1.8, APTT 32.2 03/08/25 13:30: Lactic Acid 1.3 03/08/25 14:45: Urine Color Yellow, Urine Clarity Clear, Urine pH 6.0, Ur Specific [place] 1.010, Urine Protein 30 H, Urine Glucose (UA) Normal, Urine Ketones Negative, Urine Occult Blood Negative, Urine Nitrite Negative, Urine Bilirubin Negative, Urine Urobilinogen 1 H, Ur Leukocyte Esterase 25 H, Urine RBC 0 SEEN, Urine WBC 0-5 SEEN, Ur Squamous Epith Cells 0 SEEN, Urine Bacteria 0 SEEN, Urine Mucus 0 SEEN 03/08/25 14:50: Troponin T Hi Sens 2 Hr 29 H 03/08/25 15:35: NT pro BNP II 445 03/08/25 17:43: Troponin T Hi Sens 4Hr 12 Micro: Microbiology 03/08/25 17:33 Mucosa - Nasopharyngeal Respiratory Panel (PCR) - Final Rhinovirus 03/08/25 15:50 Urine Catheter - Catheter Legionella Antigen - Final 03/08/25 15:50 Urine Catheter - Catheter Streptococcus pneumoniae Antigen (M - Final 03/08/25 13:30 Mucosa - Nose SARS-CoV-2, Influenza & RSV (PCR) - Final Radiography Diagnostic Testing: Radiology Impression Chest X-Ray 03/08/25 13:30 IMPRESSION: Cardiac enlargement. Central congestion. Reading Location: [facility] Physical Exam Const alert and no apparent distress HEENT head/scalp atraumatic and moist oral mucous membranes Resp normal respiratory effort, no retractions, no use of accessory muscles and clear to auscultation bilaterally Cardio regular rate and regular rhythm Cardio Narrative: 3-6 holo systolic murmur at the apex GI normal to inspection, nondistended, normoactive bowel sounds, soft to palpation, non-tender and non-distended Extremity normal to inspection and full ROM Neuro Sensorium / Orientation: awake and alert Assessment & Plan Assessment/Plan (1) Hypoxia: (2) Community acquired pneumonia: (3) Elevated troponin I level: PLAN: Plan Pneumonia, suspected pneumococcal with acute bronchitis * strep and legionella antigens negative. * rhinovirus. * CTX and azithromycin * on prednisone Elevated troponin * 2/2 to demand ischemia from hypoxia/pneumonia/bronchitis Chronic medical conditions: * Chronic macrocytic anemia- Hemoglobin is stable- Follows with Dr. Corley- Continue ongoing outpatient follow-up * Atrial fibrillation/SSS- Continue anticoagulation with current warfarin dose despite being slightly subtherapeutic given antibiotic use- Patient has pacemaker- EKG is stable- Continue home metoprolol * CAD/essential HTN/HPL/history of mitral valve replacement- Continue home atorvastatin- Continue home Bumex- Continue home Entresto. 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 Monitor overnight. Hopefully would be ready for discharge in 1-2 days. Charges/Coding Visit Charges Inpatient E&M: 71820 Subs Hosp L2
[2025-03-09 07:56] LABS: Differential Indicated SCAN CRITERIA MET
[2025-03-09 08:03] LABS: AST(SGOT) 19 U/L (<=31); Alanine Aminotransfer ALT/SGPT 10 U/L (<=34); Albumin, Serum 4.1 g/dL (3.4-4.8); Alkaline Phosphatase 77 U/L (35-104); Anion Gap 13 (5-15); BUN 17 mg/dL (4-19); BUN/Creat Ratio 21.2 RATIO (10-20); Calcium,Total 8.8 mg/dL (7.6-11.0); Carbon Dioxide 26.5 mmol/L (21.0-32.0); Chloride 101 mmol/L (98-108); Estimated Creatinine Clearance 49.05 ml/min (50-250); Globulin 2.5 g/dL (2.2-4.2); Glucose 152 mg/dL (70-99); Magnesium 2.0 mg/dL (1.5-2.2); Potassium 3.7 mmol/L (3.3-5.1)
[2025-03-09] MEDS: Calcium Carb/Vitamin D 1 TABLET Tablet PO ×2 (09:23→21:13)
[2025-03-09] MEDS: Potassium Chloride Oral Tablet 20 MEQ PO ×2 (09:23→21:13)
[2025-03-09 09:25] LABS: Anisocytosis 2+
[2025-03-09] MEDS: 0.9% Normal Saline (250mL Bag) 250 ML 15 ML IV (09:43)
[2025-03-09] MEDS: Ceftriaxone 2 GM in 0.9% Normal Saline (50mL MB+) 50 ML IV (09:43)
[2025-03-09] MEDS: 0.9% Saline Lock 10 ML Syringe IV (09:46)
[2025-03-09] MEDS: Azithromycin 500 MG in 0.9% Normal Saline (250mL Bag) 250 ML 250 MG IV (10:31)
--- NOTE | 2025-03-09 10:54 | CASEMGMT ---
EMELIA GAGNON Assessment Face to Face with patient for initial transition planning/care coordination assessment. EMELIA GAGNON introduced self and role at [facility], pt voices understanding. Pt is A&Ox4 and is resting comfortably in the chair and is calm. Pt's daughter at the bedside. Care providers, pharmacy, and demographics verified. Admitting dx: YUNIOR SOTOMAYOR Strata: 2 PCP: Theodore Reynoso Specialists: Carlos (Cardio) Preferred Pharmacy: [facility] Insurance: [place] [facility] Prescription Benefit: Yes LNOK: [place] Damian (Daughter), Nikita (son) Living Arrangements: Pt lives alone in a 2 story home with a FFSU and a flat entrance ADLs/IADLs: Indep, Pt denies PT needs. Pt denies concerns Transportation: Pt does not drive and states that her family and friends drive her DME: [employer]. Pulse ox. BP Machine. Pt states that she checks her VS daily and writes them down in a journal. Pt is currently requiring additional oxygen and may qualify for home oxygen use. A verbal list of local in-network DME companies were provided to the pt at this time. Pt prefers [facility] HHC/SNF: Reports HH history x 2 years ago but cannot remember the agency. Reports hx at [facility] Pt?s goal: Home Plan: Home, follow for new oxygen needs. Pt's daughter states that she plans to stay with the pt until it is not needed any longer. Pt states that she has great support through family and friends. Pt denies the need for HH or OP Tx. Pt states that she feels safe returning home once medically ready and denies any further questions, concerns, or needs. Maite Thrasher RN, CM
[2025-03-09 15:11] LABS: Prothrombin Time (Protime)PT. 30.3 SECONDS (11.7-14.9)
[2025-03-09] MEDS: Warfarin (PBKC) 4 MG Tablet 8 MG PO (17:49)
[2025-03-10] VITALS (10 sets, daily range): BP systolic 101–124; BP diastolic 50–61; PULSE 77–86; RESP 18–22; TEMP 36.6–37; O2SAT 88–98
[2025-03-10 06:37] LABS: Hematocrit 25.0 % (37-47); Hemoglobin 8.1 g/dL (12.0-15.0); Immature Granulocytes Count 0.140 X10^3/uL (0.0-0.0); Mean Corp Hgb Conc 32.4 g/dL (32-36); Mean Corpuscular Volume 105.0 fL (81-99); Mean Platelet Vol. 11.5 fl (6.2-12.0); NRBC Flagged by Analyzer 0.3 % (0-5); POSITIVE MORPHOLOGY YES; Platelet Count 136 K/mm3 (150-450); RBC Distribution Width CV 20.0 % (11.6-14.6); RBC Distribution Width SD 77.0 fl (35.1-43.9); Red Blood Count 2.38 M/mm3 (4.2-5.4); White Blood Count 10.4 K/mm3 (4.4-11.0)
[2025-03-10 06:43] LABS: Differential Indicated SCAN CRITERIA MET
[2025-03-10 06:49] LABS: Prothrombin Time (Protime)PT. 37.8 SECONDS (11.7-14.9)
[2025-03-10 06:59] LABS: Anion Gap 9 (5-15); BUN 22 mg/dL (4-19); BUN/Creat Ratio 32.4 RATIO (10-20); Calcium,Total 9.4 mg/dL (7.6-11.0); Carbon Dioxide 27.9 mmol/L (21.0-32.0); Chloride 103 mmol/L (98-108); Estimated Creatinine Clearance 50.51 ml/min (50-250); Glucose 85 mg/dL (70-99); Potassium 3.9 mmol/L (3.3-5.1)
[2025-03-10 07:16] LABS: Anisocytosis 2+
[2025-03-10] MEDS: Metoprolol(XL)Succ 50 MG Tablet PO (08:43)
[2025-03-10] MEDS: Calcium Carb/Vitamin D 1 TABLET Tablet PO (10:02)
[2025-03-10] MEDS: Potassium Chloride Oral Tablet 20 MEQ PO (10:02)
[2025-03-10] MEDS: Ceftriaxone 2 GM in 0.9% Normal Saline (50mL MB+) 50 ML IV (10:02)
[2025-03-10] MEDS: 0.9% Saline Lock 10 ML Syringe IV (10:09)
--- NOTE | 2025-03-10 10:29 | PN.HOSP_ITS ---
Reason for Visit Chief Complaint: Cough/fever/shortness of breath Subjective Subjective Breathing well. Objective Data Objective Data Vital Signs: Vital Signs Temp Pulse Resp BP Pulse Ox O2 Del Method O2 Flow Rate 36.6 C 82 18 101/50 L 95 Room Air 2 03/10/25 08:25 03/10/25 08:43 03/10/25 08:25 03/10/25 08:25 03/10/25 10:22 03/10/25 10:22 03/10/25 08:25 Oxygen Flow Rate (L/min) 2 Oxygen Delivery Method Room Air Weight: 79.4 kg Body Mass Index (BMI) 30.0 Intake & Output: Intake and Output for Last 24 Hours 03/08/25 03/09/25 03/10/25 23:59 23:59 23:59 Intake Total 300 / 300 999.25 / 999.25 Balance 300 / 300 999.25 / 999.25 Lab / Micro Data 03/10/25 05:50 03/10/25 05:50 Labs: Laboratory Results - last 24 hr 03/09/25 14:50: PT 30.3 H, INR 2.8 03/10/25 05:50: WBC 10.4, RBC 2.38 L, Hgb 8.1 L, Hct 25.0 L, MCV 105.0 H, MCH 34.0 H, MCHC 32.4, RDW Std Deviation 77.0 H, RDW Coeff of Trino 20.0 H, Plt Count 136 L, MPV 11.5, Immature Gran % (Auto) 1.400 H, Neut % (Auto) 76.8 H, Lymph % (Auto) 8.8 L, Terry % (Auto) 12.5 H, Eos % (Auto) 0.3, Baso % (Auto) 0.2, A bsolute Neuts (auto) 8.0 H, Absolute Lymphs (auto) 0.91, Nucleated RBC % 0.3, Anisocytosis 2+, PT 37.8 H, INR 3.7, Sodium 139, Potassium 3.9, Chloride 103, Carbon Dioxide 27.9, Anion Gap 9, BUN 22 H, Creatinine 0.69 L, Estim Creat Clear Calc 50.51, Est GFR (MDRD) Non-Af 84, BUN/Creatinine Ratio 32.4 H, Glucose 85, Calcium 9.4 Micro: Microbiology 03/08/25 14:45 Urine, Clean Catch Urine Culture - Final Culture exhibits no growth. 03/08/25 17:33 Mucosa - Nasopharyngeal Respiratory Panel (PCR) - Final Rhinovirus 03/08/25 21:00 Sputum, Expectorated/Coughed Gram Stain - Final 03/08/25 15:50 Urine Catheter - Catheter Legionella Antigen - Final 03/08/25 15:50 Urine Catheter - Catheter Streptococcus pneumoniae Antigen (M - Final 03/08/25 13:30 Mucosa - Nose SARS-CoV-2, Influenza & RSV (PCR) - Final Radiography Diagnostic Testing: Radiology Impression Echocardiogram 03/08/25 16:23 Interpretation Summary The estimated ejection fraction is 55 %. The left atrium is severely enlarged. The right atrium is moderately enlarged. 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 Ordering Physician: Blanche Fallon Referring Physician: DOROTHEA DUVAL Performed By: Nai Rojas RDCS Physical Exam Const alert and no apparent distress HEENT head/scalp atraumatic and moist oral mucous membranes Resp normal respiratory effort and no retractions Resp Narrative: Bilateral crackles Cardio regular rate and regular rhythm Cardio Narrative: 3 out of 6 holosystolic murmur at the apex with visible thrill GI normal to inspection, nondistended, normoactive bowel sounds, soft to palpation, non-tender and non-distended Extremity normal to inspection and full ROM Neuro Sensorium / Orientation: awake and alert Assessment & Plan Assessment/Plan (1) Hypoxia: (2) Community acquired pneumonia: (3) Elevated troponin I level: PLAN: Plan Pneumonia, suspected pneumococcal with acute bronchitis * strep and legionella antigens negative. * rhinovirus. Sputum culture pending * CTX and azithromycin * Continue prednisone Elevated troponin * 2/2 to demand ischemia from hypoxia/pneumonia/bronchitis Chronic medical conditions: * Chronic macrocytic anemia- Hemoglobin is stable- Follows with Dr. Corley- Continue ongoing outpatient follow-up * Atrial fibrillation/SSS- Continue anticoagulation with current warfarin dose despite being slightly subtherapeutic given antibiotic use- Patient has pacemaker- EKG is stable- Continue home metoprolol * CAD/essential HTN/HPL/history of mitral valve replacement- Continue home atorvastatin- Continue home Bumex- Continue home Entresto. 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 Monitor overnight. Hopefully would be ready for discharge in 1-2 days. Charges/Coding Visit Charges Inpatient E&M: 68545 Subs Hosp L2
[2025-03-10] MEDS: Azithromycin 500 MG in 0.9% Normal Saline (250mL Bag) 250 ML 250 MG IV (11:49)
--- NOTE | 2025-03-10 15:57 | DS.PCM_ITS ---
Providers Date of Admission: 03/08/25 Primary Care Physician: Dr. Theodore Duval MD Reason For Visit: CAP Diagnosis Discharge Diagnosis (1) Hypoxia: Status: Acute Code(s): R09.02 - Hypoxemia (2) Community acquired pneumonia: Status: Acute Code(s): J18.9 - Pneumonia, unspecified organism (3) Elevated troponin I level: Status: Acute Code(s): R79.89 - Other specified abnormal findings of blood chemistry Plan Pneumonia, suspected pneumococcal with acute bronchitis * strep and legionella antigens negative. * rhinovirus. Sputum culture pending * CTX and azithromycin. DC with Augmentin * Continue prednisone Elevated troponin * 2/2 to demand ischemia from hypoxia/pneumonia/bronchitis Chronic medical conditions: * Chronic macrocytic anemia- Hemoglobin is stable- Follows with Dr. Corley- Continue ongoing outpatient follow-up * Atrial fibrillation/SSS- Continue anticoagulation with current warfarin dose despite being slightly subtherapeutic given antibiotic use- Patient has pacemaker- EKG is stable- Continue home metoprolol * CAD/essential HTN/HPL/history of mitral valve replacement- Continue home atorvastatin- Continue home Bumex- Continue home Entresto. 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 Monitor overnight. DC home with oxygen. Pt requires 1 liter NC continuous. Medications at Discharge Home Medications calcium 600 mg (as carbonate)-vitamin D3 10 mcg (400 unit) tablet (Calcium 600 + D(3)) 1 tab PO BID 09/27/13 nitroglycerin 0.4 mg sublingual tablet 0.4 mg sublingual Q5M PRN Chest Pain 09/27/13 potassium chloride 20 mEq tablet,extended release 20 meq PO BID 09/27/13 warfarin 5 mg tablet (Jantoven) 8 mg PO SUMOWEFRSA 09/27/13 warfarin 7.5 mg tablet (Jantoven) 10 mg PO TUTH 09/27/13 atorvastatin 20 mg tablet 20 mg PO QHS cholesterol 03/08/25 bumetanide 1 mg tablet 1 - 2 mg PO DAILY edema 03/08/25 metoprolol succinate 50 mg tablet,extended release 24 hr 50 mg PO DAILY 03/08/25 sacubitril 24 mg-valsartan 26 mg tablet 0.5 tab PO BID 03/08/25 sertraline 50 mg tablet 50 mg PO DAILY 03/08/25 amoxicillin 875 mg-potassium clavulanate 125 mg tablet 1 tab PO BID #10 tabs 03/10/25 prednisone 20 mg tablet 40 mg (2 x 20 mg) PO BREAKFAST #6 tabs 03/10/25 Weight / BMI Weight Weight: 79.4 kg Body Mass Index (BMI) 30.0 ABG / Lab / Microbiology Data 03/10/25 05:50 03/10/25 05:50 Laboratory: Laboratory Results - last 24 hr 03/10/25 05:50: WBC 10.4, RBC 2.38 L, Hgb 8.1 L, Hct 25.0 L, MCV 105.0 H, MCH 34.0 H, MCHC 32.4, RDW Std Deviation 77.0 H, RDW Coeff of Trino 20.0 H, Plt Count 136 L, MPV 11.5, Immature Gran % (Auto) 1.400 H, Neut % (Auto) 76.8 H, Lymph % (Auto) 8.8 L, [place]iken % (Auto) 12.5 H, Eos % (Auto) 0.3, Baso % (Auto) 0.2, A bsolute Neuts (auto) 8.0 H, Absolute Lymphs (auto) 0.91, Nucleated RBC % 0.3, Anisocytosis 2+, PT 37.8 H, INR 3.7, Sodium 139, Potassium 3.9, Chloride 103, Carbon Dioxide 27.9, Anion Gap 9, BUN 22 H, Creatinine 0.69 L, Estim Creat Clear Calc 50.51, Est GFR (MDRD) Non-Af 84, BUN/Creatinine Ratio 32.4 H, Glucose 85, Calcium 9.4 Microbiology: Microbiology 03/08/25 14:00 Blood Culture (Wb) - Arm Left Blood Culture - Preliminary No growth in 48 hours. 03/08/25 13:30 Blood Culture (Wb) - Left Forearm Blood Culture - Preliminary No growth in 48 hours. 03/08/25 14:45 Urine, Clean Catch Urine Culture - Final Culture exhibits no growth. 03/08/25 17:33 Mucosa - Nasopharyngeal Respiratory Panel (PCR) - Final Rhinovirus 03/08/25 21:00 Sputum, Expectorated/Coughed Gram Stain - Final 03/08/25 15:50 Urine Catheter - Catheter Legionella Antigen - Final 03/08/25 15:50 Urine Catheter - Catheter Streptococcus pneumoniae Antigen (M - Final 03/08/25 13:30 Mucosa - Nose SARS-CoV-2, Influenza & RSV (PCR) - Final Radiography Diagnostic Testing: Radiology Impression Echocardiogram 03/08/25 16:23 Interpretation Summary The estimated ejection fraction is 55 %. The left atrium is severely enlarged. The right atrium is moderately enlarged. 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 Ordering Physician: Blanche Fallon Referring Physician: THEODORE DUVAL Performed By: Nai Rojas RDCS D/C Instructions DC O2, CPAP, BIPAP Needs Home O2 Discharge instructions: Yes Type of respiratory needs?: Oxygen Oxygen frequency: Continuous Continuous oxygen liters per minute: 1 DC home with Oxygen: Yes Home O2 MD Review: I have reviewed the oxygen testing, and the patient qualifies for home oxygen equipment and portability. The patient is mobile in the home and the community. Meaningful Use Info Meaningful Use Meaningful Use Diagnoses (Choose all that apply): None applicable Discharge Plan Admission Admit Date/Time: 03/08/25 15:33 Primary Reason for Your Visit: pneumonia Attending Provider: Bruce Zheng Primary Care Provider: Theodore Duval Consulting Providers: Blanche Fallon Discharge Orders/Prescriptions Prescriptions: New prednisone 20 mg Tablet 40 mg PO BREAKFAST Qty: 6 0RF amoxicillin-pot clavulanate 875-125 mg tablet 1 tab PO BID Qty: 10 0RF Continued warfarin [Jantoven] 5 MG tablet 8 mg PO Patient Comments: EVERYDAY EXCEPT WEDNESDAY nitroglycerin 0.4 MG tablet 0.4 mg sublingual Q5M PRN (Reason: Chest Pain) calcium carbonate-vitamin D3 [Calcium 600 + D(3)] 1 EACH tablet 1 tab PO BID Patient Comments: SUPPLEMENT potassium chloride 20 MEQ tablet extended release 20 meq PO BID Patient Comments: SUPPLEMENT warfarin [Jantoven] 7.5 MG tablet 10 mg PO TUTH Patient Comments: BLOOD THINNER atorvastatin 20 mg tablet 20 mg PO QHS metoprolol succinate 50 mg tablet extended release 24 hr 50 mg PO DAILY bumetanide 1 mg tablet 1 - 2 mg PO DAILY sertraline 50 mg tablet 50 mg PO DAILY sacubitril-valsartan 24-26 mg tablet 0.5 tab PO BID Referrals / Follow Up: Theodore Duval MD [Primary Care Provider, Internal Medicine] - Within 2 Weeks Disposition Disposition (needs filled in before D/C Order can be placed): Home, Self Care Charges/Coding Visit Charges Inpatient E&M: 35093 Disch Hosp
--- NOTE | 2025-03-10 17:05 | NURSING ---
After discharge order, Pts dtg from [place] expressed concern about driving pt home. This nurse inquired about alternate drivers, arranging ambulance service,and notified Dr. Zheng. Pt and dtg stated other drivers not available and declined ambulance service, Dr. Zheng noted concern.
== END 2025-03-10 17:10 | disposition home or self-care (01) | DRG 193 ==
LOC: ED 15:25 → MS3 16:25
PROVIDERS: Admitting Provider Internal Medicine; Emergency Provider Emergency Medicine; PCP Internal Medicine
DX: J13 Pneumonia due to Streptococcus pneumoniae (principal); J96.01 Acute respiratory failure with hypoxia; I24.89 Other forms of acute ischemic heart disease; I49.5 Sick sinus syndrome; Z66 Do not resuscitate; I10 Essential (primary) hypertension; F32.A Depression, unspecified; D64.9 Anemia, unspecified; Z95.2 Presence of prosthetic heart valve; I48.91 Unspecified atrial fibrillation; I25.10 Atherosclerotic heart disease of native coronary artery without angina pectoris; E78.5 Hyperlipidemia, unspecified; J20.2 Acute bronchitis due to streptococcus; E66.3 Overweight; Z85.3 Personal history of malignant neoplasm of breast; Z68.29 Body mass index [BMI] 29.0-29.9, adult; Z95.0 Presence of cardiac pacemaker; Z79.01 Long term (current) use of anticoagulants; Z79.899 Other long term (current) drug therapy
CPT/HCPCS: 36415; 71045; 80048; 80053; 81001; 83605; 83735; 83880; 84100; 84443; 84484; 85025; 85610; 85730; 87040; 87070; 87086; 87205; 87449; 87631; 87633; 93005; 93306; 94640; 94668; 99252; 99285; A4216; G0463; J0696